=== PATIENT | female | born 2000 | race Caucasian/White ===

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

== ENCOUNTER 2018-11-24 09:16 | Emergency (ER) | payer OTHER ==
[~2018-11-24] VITALS: Ht 157.5 cm; Wt 132.9 kg
[2018-11-24 09:24] VITALS: Ht 157.5 cm; Wt 132.9 kg
[2018-11-24 10:09] LABS: microscopic required? YES; urine erythrocyte TRACE (NEGATIVE)
[2018-11-24 10:46] VITALS: BP 103/59
== END 2018-11-24 12:02 | disposition home or self-care (01) ==
LOC: ED 09:16
PROVIDERS: Emergency Medicine
DX: N39.0 Urinary tract infection, site not specified (principal); E66.9 Obesity, unspecified; Z68.43 Body mass index [BMI] 50.0-59.9, adult

== ENCOUNTER 2018-12-21 21:37 | Emergency (ER) | payer OTHER ==
[~2018-12-21] VITALS: Ht 157.5 cm; Wt 122.5 kg
[2018-12-21 22:02] VITALS: Ht 157.5 cm; Wt 122.5 kg
[2018-12-21 23:01] LABS: UA SPECIFIC GRAVITY 1.015 (1.005-1.035); microscopic required? YES; urine erythrocyte 3+ (NEGATIVE)
[2018-12-21 23:23] LABS: BASOPHIL % 0.4 % (0-2); PLATELET COUNT 327 x10^3mcL (130-400)
[2018-12-21 23:27] LABS: RED CELL DISTRIBUTION WIDTH 20.6 % (11.5-14.5)
[2018-12-21 23:28] LABS: rbc morphology (normal/abnorm) ABNORMAL (NORMAL)
[2018-12-22 00:30] VITALS: BP 123/61
== END 2018-12-22 00:30 | disposition home or self-care (01) ==
LOC: ED 21:37
PROVIDERS: Emergency Medicine
DX: O02.1 Missed abortion (principal); Z90.49 Acquired absence of other specified parts of digestive tract
CPT/HCPCS: 36415

== ENCOUNTER 2020-04-09 10:41 | Emergency (ER) | payer OTHER ==
[~2020-04-09] VITALS: Ht 157.5 cm; Wt 142.0 kg
[2020-04-09 10:49] VITALS: Ht 157.5 cm; Wt 142.0 kg
[2020-04-09 11:19] LABS: BASOPHIL % 0.6 % (0.2-1.3); PLATELET COUNT 306 x10^3mcL (179-408)
[2020-04-09 11:20] LABS: RED CELL DISTRIBUTION WIDTH 16.8 % (12.3-17.7)
[2020-04-09 11:36] LABS: CALCIUM 9.1 mg/dL (8.5-10.1); CARBON DIOXIDE 23.9 mmol/L (21-32); CHLORIDE SERUM 101 mmol/L (98-107); CREATININE SERUM 0.6 mg/dL (0.6-1.0); GFR1 > 60 mL/min; GLUCOSE SERUM 107 mg/dL (74-106); POTASSIUM SERUM 3.7 mmol/L (3.5-5.1); SODIUM SERUM 134 mmol/L (136-145)
[2020-04-09 11:41] LABS: ALBUMIN 3.6 g/dL (3.4-5.0); ALKALINE PHOSPHATASE 95 U/L (46-116); ALT/SGPT 24 U/L (14-59); AST/SGOT 10 U/L (15-37); BILIRUBIN TOTAL 0.5 mg/dL (0.20-1.00)
[2020-04-09] MEDS ORDERED: ULTRAM50 MG PO (13:56)
[2020-04-09] MEDS ORDERED: MOT600 PO (13:56)
[2020-04-09 14:13] VITALS: BP 114/68
== END 2020-04-09 14:13 | disposition home or self-care (01) ==
LOC: ED 10:41
PROVIDERS: Emergency Medicine
DX: I88.0 Nonspecific mesenteric lymphadenitis (principal); N83.202 Unspecified ovarian cyst, left side; Z90.49 Acquired absence of other specified parts of digestive tract; Z87.19 Personal history of other diseases of the digestive system